=== PATIENT | female | born 1970 | race Caucasian/White ===

== ENCOUNTER → 2019-04-03 | Outpatient (CLI) | payer OTHER, BC ==
[~2019-04-03] MED LIST: BUSP10TA PO; DESO1TAB73 PO; DOXY40CP PO; LEVO137T2 PO
[2019-04-03 14:30] LABS: BASO % 0 % (0-3); EOS # 0.2 x10^3/uL (0.0-0.7); EOS % 3 % (0-3); HEMATOCRIT 39.9 % (36.0-47.0); HEMOGLOBIN 13.6 g/dL (12.0-15.5); LYMPH # 1.9 x10^3/uL (1.0-4.8); LYMPH % 26 % (24-48); MEAN CORPUSCULAR HEMOGLOBIN 33 pg (25-35); MEAN CORPUSCULAR HGB CONC 34 g/dL (31-37); MEAN CORPUSCULAR VOLUME 96 fL (79-100); MONO # 0.4 x10^3/uL (0.0-1.1); MONO % 6 % (0-9); NEUT # 4.6 x10^3/uL (1.8-7.7); NEUT % 65 % (31-73); PLATELET COUNT 222 x10^3/uL (140-400); RED BLOOD COUNT 4.17 x10^6/uL (3.50-5.40); RED CELL DISTRIBUTION WIDTH 12.6 % (11.5-14.5); WHITE BLOOD COUNT 7.1 x10^3/uL (4.0-11.0)
[2019-04-03 14:31] LABS: BILIRUBIN,URINE NEGATIVE (NEG); CLARITY,URINE CLEAR; COLOR,URINE YELLOW; NITRITE,URINE NEGATIVE (NEG); PH,URINE 5.5; PROTEIN,URINE NEGATIVE (NEG-TRACE)
--- NOTE | 2019-04-03 14:41 | EKG ---
[facility] [address] [place] [address] Test Date: 2019-04-03 Test Time: 14:39:13 Pat Name: ARIELLE GARIBAY Department: Room: Gender: F Rate Analyst: KANA : 1970 Requested By: SAVANNAH ROB Order Number: [id number] Reading MD: Measurements Intervals Irwin Rate: 84 P: 55 CO: 144 QRS: 72 QRSD: 78 T: 38 QT: 360 QTc: 429 Interpretive Statements SINUS RHYTHM QRS(T) CONTOUR ABNORMALITY CONSIDER ANTEROLATERAL MYOCARDIAL DAMAGE CONSIDER INFERIOR MYOCARDIAL DAMAGE POSSIBLY ABNORMAL ECG RI6.01 No previous ECG available for comparison
[2019-04-03 14:47] LABS: BACTERIA,URINE FEW /HPF (0-FEW); SQUAMOUS EPITHELIAL CELL,UR FEW /LPF
[2019-04-03 14:54] LABS: ALBUMIN 3.4 g/dL (3.4-5.0); ALBUMIN/GLOBULIN RATIO 0.9 (1.0-1.7); CALCIUM 8.4 mg/dL (8.5-10.1); CREATININE 0.7 mg/dL (0.6-1.0); GFR 90.1; POTASSIUM 3.6 mmol/L (3.5-5.1); TOTAL BILIRUBIN 0.4 mg/dL (0.2-1.0); TOTAL PROTEIN 7.2 g/dL (6.4-8.2)
--- NOTE | 2019-04-03 15:29 | RAD ---
EXAM: PA and Lateral Views of the Chest DATE: 04/03/2019 2:10 PM INDICATION: PRE-OP FOR HYSTERECTOMY COMPARISON: No Prior FINDINGS: The heart is not enlarged. Mediastinal and hilar contours are normal. No focal parenchymal airspace opacity. No pleural effusion or pneumothorax. IMPRESSION: 1. No radiographic evidence for acute cardiopulmonary process. Electronically signed by: Alistair Valadez MD (04/03/2019 3:26 PM) [id number]
== END | disposition home or self-care (01) ==
LOC: SURGPAT 13:55
PROVIDERS: ATTEND Obstetrics & Gynecology
DX: Z01.818 Encounter for other preprocedural examination (principal); E03.9 Hypothyroidism, unspecified
CPT/HCPCS: 36415; 71046; 80053; 81001; 84443; 85025; 87086; 93005

== ENCOUNTER 2019-04-11 06:10 | Observation (INO) | payer OTHER, BC ==
[2019-04-11] VITALS (7 sets, daily range): BP systolic 116–128; BP diastolic 68–80
[~2019-04-11] VITALS: Ht 160 cm; Wt 63.5 kg
[2019-04-11] MEDS ORDERED: ONDANSETRON PF 4 MG/2 ML VIAL. IV PRN ×2 (07:00→10:15)
[2019-04-11] MEDS ORDERED: IV RINGERS,LACTATED 1000ML 1,000 ML IV SCH (07:00)
[2019-04-11] MEDS ORDERED: MORPHINE SULFATE 2 MG/ML VIAL. IV PRN ×2 (07:00→10:15)
[2019-04-11] MEDS ORDERED: PROCHLORPERAZINE 10 MG/2 ML VIAL. IV PRN (07:00)
[2019-04-11] MEDS ORDERED: HYDROmorphone 2 MG/ML VIAL IV PRN (07:00)
[2019-04-11] MEDS ORDERED: fentaNYL PF VIAL 100 MCG/2 ML VIAL IV PRN (07:00)
[2019-04-11] MEDS ORDERED: LIDOCAINE 1% PF 2 ML VIAL. ID PRN (07:00)
[2019-04-11] MEDS ORDERED: ROCURONIUM 50 MG/5 ML VIAL. ONE (07:10)
[2019-04-11] MEDS ORDERED: GLYCOPYRROLATE 1 MG/5 ML VIAL. ONE ×2 (07:10→12:04)
[2019-04-11] MEDS ORDERED: SEVOFLURANE > 120 MINUTES. IH ONE (07:10)
[2019-04-11] MEDS ORDERED: MIDAZOLAM HCL/PF 2 MG/2 ML VIAL. ONE (07:11)
[2019-04-11] MEDS ORDERED: PROPOFOL 20 ML IV ONE ×2 (07:11→12:05)
[2019-04-11] MEDS ORDERED: NEOSTIGMINE METHYLSULFATE 5 MG/5 ML SYRINGE. ONE ×2 (07:11→12:04)
[2019-04-11] MEDS ORDERED: DEXAMETHASONE SOD PHOS 4 MG/ML VIAL ONE ×2 (07:11→12:05)
[2019-04-11] MEDS ORDERED: LIDOCAINE 2% PF 5 ML VIAL. ONE ×2 (07:11→12:05)
[2019-04-11] MEDS ORDERED: ONDANSETRON PF 4 MG/2 ML VIAL. ONE ×3 (07:11→12:05)
[2019-04-11] MEDS ORDERED: fentaNYL PF VIAL 100 MCG/2 ML VIAL ONE ×3 (07:11→10:24)
[2019-04-11] MEDS ORDERED: KETOROLAC 30 MG/ML VIAL. ONE (07:11)
[2019-04-11] MEDS ORDERED: ESTROGENS, CONJ VAGINAL CREAM 30GM TUBE. ONE (07:32)
[2019-04-11] MEDS ORDERED: INDIGOTINDISULFONATE SODIUM 40 MG/5 ML AMPUL. ONE (07:32)
[2019-04-11] MEDS ORDERED: BUPIVACAINE-EPI 0.25%-1:200000 MPF 30 ML VIAL. INJ ONE (08:00)
[2019-04-11] MEDS ORDERED: PHENYLEPHRINE in 0.9% NACL PF 1 MG/10 ML SYRINGE. IV ONE (08:04)
[2019-04-11] MEDS ORDERED: ePHEDrine PF IN SALINE 50 MG/10 ML SYRINGE. IV ONE (09:14)
[2019-04-11] MEDS ORDERED: busPIRone 10 MG TABLET. PO SCH (09:30)
--- NOTE | 2019-04-11 10:02 | PDOC ---
BRIEF OPERATIVE NOTE Date: Apr 11, 2019 Pre-Op Diagnosis RAFAT 2, left sided pelvic pain Post-Op Diagnosis same with mild endometriosis Procedure Performed LAVH/LSO, right salpingectomy Surgeon Dr. Pryor Investment Officer Pankaj GRAYSON Anesthesiologist Dr. Kemp Anesthesia Type: General Blood Loss 100cc IV Fluid 1L Urine Output 300cc clear via beck Specimens Obtained cervix, uterus, left tube and ovary, right tube Findings mildly enlarge RV uterus, normal bilateral tubes and ovaries, spot of endo on left side in post cul de sac Complications none Operative Note [id number] SAVANNAH PRYOR MD Apr 11, 2019 10:02
[2019-04-11] MEDS ORDERED: LACTULOSE 20 GM/30 ML SOLUTION. PO PRN (10:15)
[2019-04-11] MEDS ORDERED: KETOROLAC 30 MG/ML VIAL. IVP PRN (10:15)
[2019-04-11] MEDS ORDERED: CALCIUM CARBONATE 500 MG TAB.CHEW PO PRN (10:15)
[2019-04-11] MEDS ORDERED: diphenhydrAMINE 50 MG/ML VIAL IV PRN (10:15)
[2019-04-11] MEDS ORDERED: MAGNESIUM HYDROXIDE 2,400 MG/30 ML ORAL.SUSP. PO PRN (10:15)
[2019-04-11] MEDS ORDERED: MAG HYDROX/ALUMINUM HYD/SIMETH 30 ML ORAL.SUSP PO PRN (10:15)
[2019-04-11] MEDS ORDERED: HYDROcodone/APAP 5/325MG 1 TAB TABLET PO PRN (10:15)
[2019-04-11] MEDS ORDERED: NALOXONE 0.4 MG/ML VIAL. IV PRN (10:15)
[2019-04-11] MEDS ORDERED: SIMETHICONE 80 MG TAB.CHEW PO PRN (10:15)
[2019-04-11] MEDS ORDERED: 0.9 % SODIUM CHLORIDE 10 ML DISP.SYRIN. IV PRN (10:15)
[2019-04-11] MEDS ORDERED: ZOLPIDEM 5 MG TABLET. PO PRN (10:15)
[2019-04-11] MEDS ORDERED: diphenhydrAMINE HCL 25 MG CAPSULE PO PRN (10:15)
[2019-04-11] MEDS: fentaNYL PF VIAL 100 MCG/2 ML VIAL IV PRN ×2 (10:27→10:51)
[2019-04-11] MEDS ORDERED: FAMOTIDINE 20 MG/2 ML VIAL ONE (12:03)
[2019-04-11] MEDS ORDERED: METOCLOPRAMIDE HCL 10 MG/2 ML VIAL. ONE (12:04)
[2019-04-11] MEDS ORDERED: ESMOLOL 100 MG/10 ML VIAL. IVP ONE (12:05)
--- NOTE | 2019-04-11 12:16 | OP ---
DATE OF SURGERY: 04/11/2019 PREOPERATIVE DIAGNOSES: RAFAT 2 on colposcopy, biopsy and also left-sided pelvic pain. PROCEDURES: Laparoscopic-assisted vaginal hysterectomy, left salpingo-oophorectomy, right salpingectomy. SURGEON: Savannah Pryor MD MEDICAL LABORATORY SCIENTIST: RENUKA Lamas ANESTHESIOLOGIST: Dr. Kemp. ANESTHESIA: General. URINE OUTPUT: 300 mL clear via Mix catheter. FLUIDS: 1 liter of crystalloid. BLOOD LOSS: 100 mL. SPECIMENS: Cervix, uterus, left tube and ovary, right tube. FINDINGS: A mildly enlarged retroverted uterus, normal bilateral tubes and ovaries and the spot of endometriosis in the posterior cul-de-sac. COMPLICATIONS: None. DISPOSITION: Recovery room in stable condition. DESCRIPTION OF PROCEDURE: This patient was taken to the operating room where general anesthesia was placed. The patient was placed in a dorsal lithotomy position in [facility]. The patient's abdomen and vagina were both prepped and draped in the normal sterile fashion and a Mix catheter had been inserted under sterile technique. Upon my arrival, a timeout was performed. Once everyone agreed, a bivalve speculum was placed in the patient's vagina. A single-tooth tenaculum was used to grasp the anterior lip of the cervix. A 10 mL of 0.25% Marcaine with epinephrine was used to circumferentially inject around the cervix for both hemodissection and hemostatic purposes later. Once this was done, the Valtchev uterine manipulator was placed through the endocervical os, locked on the single tooth tenaculum and the open side arm bivalve speculum was then removed. Top gloves were discarded and changed. Attention was then turned to the abdomen where a small infraumbilical skin incision was made over the existing scar. A curved Madalyn was used to dissect through the subcuticular layer. However, I never did hit the fascia, it felt like it went immediately in. So with the VisiScope, I did scope in the trocar and gently put it in and we were indeed already in the abdominal cavity. It appeared she may have some sort of a fascial defect from her prior surgery. So we were in, carbon dioxide gas was used to then appropriately insufflate the abdominal cavity to maintain a pressure of 15 mmHg. The patient was placed in Trendelenburg position. Right and left lower quadrant ports were placed after transilluminating the abdominal wall, finding an area clear of any vasculature, injecting with some 0.25% Marcaine, making a small incision and placing the trocar under direct visualization, 4-5 mL of air were placed in the trocar cuff. I then did move the camera to a lateral port to look at the umbilical port and I did inject this one and then used the air to insufflate the catheter or the trocar as well. You could see an area around the umbilicus that looked weakened in the peritoneum. There was no bowel, omentum, no hernia, but she definitely looked like she had some sort of an abdominal wall defect from prior surgeries. At this point, attention was turned to the pelvis where the left tube and ovary were identified, elevated. You could see the ureter coursing very low on the left side, staying high on the infundibulopelvic ligament, cauterizing and cutting, taking the left tube and ovary per patient request, crossing the left round ligament then and starting the bladder flap. The right tube and ovary were normal. I stayed above the right ovary below the tube, doing a salpingectomy on the right side, crossing the right uteroovarian pedicle, leaving the right ovary per patient request as it was normal, crossing the right round ligament. Then, using the [place] to elevate the bladder, there were some mild scarring from her prior , but nothing terrible, using the monopolar hook to cut across and create the bladder flap sharply while pushing the uterus in cephalad with the Valtchev giving traction and countertraction and then using a [place] to elevate and gently push and pull back and the monopolar hook to cut. The bladder flap was created sharply and very easily and came down great. I then obtained the uterine vessels on both sides and crossing from right to left, hugging the cervix, staying vertical uterus and cervix going down to the uterosacral. Then, on the right side just staying right inside each pedicle getting inside the uterine going down and hugging the cervix until we were down just above the uterosacral on this side as well. The uterus was completely blanched, completely free. There was no active bleeding. So at this point, attention was turned below. All instruments were removed. The gas was turned off. The light and camera were turned off and attention was turned below. The single tooth and Valtchev were removed. A weighted speculum was placed in the patient's vagina. Thyroid Narda clamps were placed on the anterior and posterior lips of the cervix respectively. A scalpel was used to make a circumferential incision in the cervix, gently pushing up the anterior bladder peritoneum with the Yankauer suction tip. The scalpel was used to sharply dissected and peel-away the bladder from the cervix and then an open 4 x 4 was used to gently push up and we entered the anterior cul-de-sac bluntly and digitally. The 4 x 4 was taken out and passed off and the curved [place] was placed in the anterior cul-de-sac. The cervix was elevated. The posterior cul-de-sac was sharply entered with curved Núñez scissors. A #0 Vicryl stitch was used to secure the posterior peritoneum here to the vaginal cuff and it was tagged with a curved Madalyn clamp and the needle was cut and passed off. The short weighted speculum was removed and replaced with the long Brandan speculum in the posterior cul-de-sac. Curved Dixon clamps x 2 were placed on the patient's left uterosacral ligament where they were doubly clamped with curved Dixon's, cut with curved Núñez scissors and suture ligated x 2 with 0 Vicryl. The second one was taken through the vaginal cuff securing uterosacral ligament to the vaginal cuff. It was tagged with a straight Madalyn clamp. Needle was cut and passed off. This was done exactly the same on the right side, double clamping the uterosacrals with curved Dixon's, cutting with curved Núñez scissors, suture ligating x 2 with 0 Vicryl and taking the second one through the vaginal cuff securing uterosacral ligament to the vaginal cuff, tagging it with a straight Madalyn clamp and cutting and passing the needle off. Once this was done, the remaining pedicles on both sides were delineated with the curved mixture. The vaginal LigaSure was used to cauterize and cut Cervix, uterus, left tube and ovary, right tube were delivered in total and passed off for permanent pathology. Once this was done, a sponge stick was used to examine the pedicles. A long Allis was used to grasp the anterior bladder peritoneum. The cuff had some bleeding, so I did put a running locked baseball stitch in the posterior cuff with 2-0 Vicryl, which helped tremendously. I removed the long Brandan speculum before doing this, of course, replaced the short weighted vaginal, did the stitch in the cuff and it looked good. So at this point, I took a full length 2-0 Vicryl, took it through the anterior bladder peritoneum, left uterosacral ligament, posterior peritoneum and right uterosacral ligament, thus closing the peritoneum in a pursestring like fashion. Once this was done, the right and left uterosacral tags were clipped as well. The cuff was closed in an anterior to posterior running locked fashion with a full length 2-0 Vicryl and tied to that posterior cuff tag. Once this was done and hemostasis was assured vaginally and everything looked good, one interrupted stitch was placed in the cuff with a piece of 2-0 with excellent results. Once hemostasis was assured, everything was removed, all bottom counts were correct x 2 by OR personnel. All gloves were discarded and changed. Attention was turned back above for a second look where she was reinsufflated, placed back in Trendelenburg position. Copious irrigation revealed a fairly good hemostasis. There was some slight bleeding on the right side, not at the ovarian pedicle, but down right on the cuff, so I used the LigaSure to just cauterize it with excellent results, reirrigated with excellent results. Tisseel was placed over all the pedicles. Once hemostasis was assured, the right upper quadrant looked normal. Everything else looked good. It remained hemostatic. The air was taken out of all 3 trocars. Right and left lower quadrant ports were removed under direct visualization. Gas was released from the umbilical port. It was also removed. All 3 port sites were closed with 4-0 nylon at the skin. The patient was then awakened from anesthesia and brought to the recovery room in stable condition. SAVANNAH PRYOR MD DR: DELLA/selena JOB#: [id number] / [id number]
[2019-04-11] MEDS: oxyCODONE/APAP 5/325 1 TAB TABLET PO PRN ×3 (12:20→17:29)
--- NOTE | 2019-04-11 17:53 | NUR ---
HOME INSTRUCTIONS GONE OVER WITH PT AND SIGNED. NO QUESTIONS HAS APPT ALREADY MADE PAIN MEDS AT HOME
[2019-04-12] MEDS ORDERED: LEVOTHYROXINE 137 MCG TABLET PO SCH (06:00)
--- NOTE | 2019-04-15 14:07 | PATHOLOGY ---
[facility] Accession Number: [id number] . 01 Material submitted: . uterus - CERVIX, UTERUS, BILATERAL TUBES, LEFT OVARY. Modifiers: bilateral, left . 01 Clinical history: . RAFAT 2 . 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 - Exocervical margin negative for dysplasia. - Chronic cervicitis with focal atypical squamous metaplasia. - Nabothian cysts and endocervical gland tunnel clusters, cervix. - Atrophic endometrium. - Adenomyosis, uterine corpus, focal. - Leiomyoma, uterine corpus, intramural, measuring 0.4 cm. - Congestion of bilateral fallopian tubes. - Left ovary showing no diagnostic abnormalities. (JPM:yevgeniy; 04/15/2019) [facility] [place] 04/15/2019 1119 Local . 02 Comment: There is no evidence of malignancy. . 02 Electronically signed: . Enrique Colbert MD, Pathologist NPI- [id number] . 01 Gross description: . The specimen is received in formalin, labeled "Lou Grier, cervix, uterus, bilateral tubes, left ovary". Received 129 g, 9.2 x 6.3 x 5.1 cm uterus with attached cervix, attached left adnexa weighing 5 g, and attached right fallopian tube weighing 2 g. The uterine serosa is light mason and smooth in appearance. The 1.1 cm cervical os is surrounded by red-brown, granular to pale mason, smooth ectocervical mucosa. The uterus is oriented using the peritoneal reflection and the entire paracervical margin is inked black. The uterus is opened laterally to reveal a pale mason, corrugated to slightly cystic-appearing endocervical canal measuring 2.7 cm in length. The endometrial cavity is triangular measuring 4.6 cm in length by 2.5 cm in width. The endometrium is pale mason, glistening in appearance and measures 0.1 cm in thickness. Serial sectioning reveals a mason-pink, trabecular myometrium measuring up to 2.8 cm in thickness displaying a single intramural fibroid measuring 0.4 cm. . The left adnexa consists of a fimbriated fallopian tube measuring 6.3 cm in length by 0.6 cm in diameter attached to a 3.2 x 1.2 x 1.0 cm ovary. Sectioning through the fallopian tube reveals a pinpoint to patent lumen. Sectioning through the ovary reveals pale mason, normal ovarian stroma. . The right fimbriated fallopian tube measures 5.7 cm in length by 0.5 cm in diameter. Sectioning reveals a pinpoint to patent lumen. The entire cervix and additional event sales representative sections are submitted as follows: . A1-A4 12:00 to 3:00 cervix A5-A8 3:00 to 6:00 cervix A9-A12 6:00 to 9:00 cervix A13-A16 9:00 to 12:00 cervix A17 anterior endomyometrium A18 posterior endomyometrium A19 intramural fibroid A20 left adnexa A21 right fallopian tube. (CAA; 04/12/2019) [facility] 04/12/[address] [place] [address] . 02 Pathologist provided ICD-10: N87.0, N72, D25.1, N80.0, N85.8 . 02 CPT . 201698 Specimen Comment: A courtesy copy of this report has been sent to [phone], [phone] Specimen Comment: [id number] Specimen Comment: Report sent to / DR NASCIMENTO Performed at: 01 [facility] [address], [place] [id number] MD Anselmo Almaguer MD Phone: [phone] Performed at: 02 [facility] [address] [place], [place] [id number] MD Enrique Colbert MD Phone: [phone]
== END 2019-04-11 18:23 | disposition home or self-care (01) ==
LOC: SURG 06:10 → 3 NORTH 10:15
PROVIDERS: ADMIT Obstetrics & Gynecology; ATTEND Obstetrics & Gynecology
DX: N87.1 Moderate cervical dysplasia (principal); R10.2 Pelvic and perineal pain; E03.8 Other specified hypothyroidism; E03.9 Hypothyroidism, unspecified; N80.9 Endometriosis, unspecified; Z98.891 History of uterine scar from previous surgery
CPT/HCPCS: 36415; 58552; 81025; 86850; 86900; 86901; 88307; A7015; G0378; G0379; J0171; J0696; J1100; J2001; J2250; J2370; J2405; J2704; J2710; J2765; J3010; J3490; J7030; J7120; J1885